=== PATIENT | female | born 1980 | race Hispanic/Latino ===

== ENCOUNTER 2024-01-31 20:23 | Emergency (ER) | payer SELFPAY ==
[~2024-01-31] VITALS: Ht 149.9 cm; Wt 91.2 kg
[~2024-01-31 20:23] MED LIST: CEPHALEXIN500 MG PO
[2024-01-31 21:28] LABS: CLARITY,URINE CLOUDY (CLEAR); COLOR,URINE YELLOW (YELLOW); GLUCOSE, URINE NEGATIVE (NEGATIVE); KETONES,URINE NEGATIVE (NEGATIVE); LEUKOCYTE ESTERASE ,URINE TRACE (NEGATIVE); NITRITE,URINE NEGATIVE (NEGATIVE); PH,URINE 6 (5 - 7); PROTEIN,URINE DIPSTICK NEGATIVE (NEGATIVE); URINE UROBILINOGEN 0.2 mg/dL (0.2 - 1)
[2024-01-31 21:29] LABS: BILIRUBIN,URINE NEGATIVE (NEGATIVE)
[2024-01-31 21:38] LABS: BACTERIA,URINE MANY /HPF; EPITHELIAL CELLS,URINE MANY /LPF; RBC,URINE 21-50 /HPF (0-5); WBC,URINE (MAN) 21-50 /HPF (0-5)
[2024-01-31 21:39] LABS: MUCUS,URINE FEW (RARE); RENAL EPITHELIAL CELLS,URINE FEW; SPERM,URINE PRESENT; TRANSITIONAL EPI CELLS,URINE FEW
[2024-01-31 21:42] LABS: INFLUENZAE A&B ANTIGEN (RAPID) NEGATIVE (NEGATIVE); RESPIRATORY SYNC. VIRUS NEGATIVE (NEGATIVE)
[2024-01-31 21:44] LABS: STREPTOCOCCUS GRP A ANTIGEN POSITIVE (NEGATIVE)
[2024-01-31] MEDS ORDERED: CEFDINIR300 MG PO (22:17)
[2024-01-31] MEDS: CEFDINIR 300 MG CAP PO ONE (22:20)
[2024-01-31 22:21] VITALS: PULSE 108; RESP 16; TEMP 99; O2SAT 100
[2024-01-31] MEDS ORDERED: CEFDINIR 300 MG CAP ONE (22:22)
== END 2024-01-31 22:23 | disposition home or self-care (01) ==
LOC: ER 20:29
DX: R30.0 Dysuria (principal); N39.0 Urinary tract infection, site not specified; J02.0 Streptococcal pharyngitis; R05.9 Cough, unspecified; I10 Essential (primary) hypertension; Z11.52 Encounter for screening for COVID-19; Z85.3 Personal history of malignant neoplasm of breast
CPT/HCPCS: 71045; 81001; 83518; 87400; 87420; 99283; U0002